=== PATIENT | male | born 1985 | race African-American/Black ===

== ENCOUNTER 2021-12-16 20:41 | Emergency (ER) | payer OTHER ==
[~2021-12-16] VITALS: Ht 180.3 cm; Wt 151.0 kg
[2021-12-16 20:41] VITALS: BP 139/84
[2021-12-16] MEDS ORDERED: NEOMYCIN-BACITRACIN-POLYM UNITDOSE PKG TOP OINT TOP ONE (23:45)
== END 2021-12-17 00:03 | disposition home or self-care (01) ==
LOC: ER 20:41
DX: S61.412A Laceration without foreign body of left hand, initial encounter (principal); W26.0XXA Contact with knife, initial encounter; Y93.89 Activity, other specified; Y92.89 Other specified places as the place of occurrence of the external cause; Y99.8 Other external cause status
CPT/HCPCS: 12001